=== PATIENT | male | born 1965 | race Caucasian/White ===

== ENCOUNTER 2016-07-15 20:32 | Emergency (ER) | payer OTHER, MEDICARE ==
[2016-07-15] MEDS ORDERED: HYDROMORPHONE HCL INJ/PF 2 MG/ML AMPULE IM ONE ×2 (21:08→22:31)
[2016-07-15] MEDS ORDERED: LORAZEPAM INJ 2 MG/1 ML VIAL IM ONE (21:08)
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
[2016-07-15] MEDS ORDERED: LIDOCAINE 2% URO-JET 5 ML KIT MM ONE (22:11)
[2016-07-15 23:46] VITALS: BP 105/64
== END 2016-07-16 00:54 | disposition home or self-care (01) ==
LOC: ER 20:32
DX: N35.014 Post-traumatic urethral stricture, male, unspecified (principal); R33.9 Retention of urine, unspecified; W40 Explosion of other materials; Z88.2 Allergy status to sulfonamides; Z88.6 Allergy status to analgesic agent; Z87.442 Personal history of urinary calculi; Z98.890 Other specified postprocedural states
CPT/HCPCS: 99283; 96372; 51702; J1170; J2060

== ENCOUNTER 2016-09-18 20:31 | Emergency (ER) | payer OTHER, MEDICARE ==
[2016-09-18 20:37] VITALS: BP 126/71
[2016-09-18] MEDS ORDERED: LIDOCAINE 2% URO-JET 5 ML KIT MM ONE (20:42)
== END 2016-09-18 23:28 | disposition left against medical advice (07) ==
LOC: ER 20:31
DX: Z53.21 Procedure and treatment not carried out due to patient leaving prior to being seen by health care provider (principal)
CPT/HCPCS: J3490

== ENCOUNTER 2017-10-26 20:40 | Emergency (ER) | payer OTHER, MEDICARE ==
--- NOTE | 2017-10-26 22:04 | RADIOLOGY REPORT (SQ) ---
EXAM DESCRIPTION: WRIST RIGHT 3 VIEWS COMPLETED DATE/TIME: 10/26/2017 9:54 pm REASON FOR STUDY: fall COMPARISON: None. NUMBER OF VIEWS: Three views. TECHNIQUE: AP, lateral, and oblique radiographic images acquired of the right wrist. LIMITATIONS: None. FINDINGS: MINERALIZATION: Normal. BONES: Transverse fracture of the distal radius with minimal dorsal angulation. Probable tiny avulsi on fracture from the ulnar styloid. SOFT TISSUES: No soft tissue swelling. No foreign body. OTHER: No other significant finding. IMPRESSION: TRANSVERSE FRACTURE OF THE DISTAL RADIUS WITH MINIMAL ANGULATION AND PROBABLE TINY AVULS ION FRACTURE FROM THE ULNAR STYLOID. TECHNICAL DOCUMENTATION: JOB ID: [id number] [employer]- All Rights Reserved Reading location - IP/workstation name: [email or web address]
--- NOTE | 2017-10-26 22:04 | RADIOLOGY REPORT (SQ) ---
EXAM DESCRIPTION: HIP RIGHT AP/LATERAL COMPLETED DATE/TIME: 10/26/2017 9:54 pm REASON FOR STUDY: fall COMPARISON: None. NUMBER OF VIEWS: Two views. TECHNIQUE: AP pelvis and additional frog-leg view of the right hip. LIMITATIONS: None. FINDINGS: MINERALIZATION: Normal. RIGHT HIP: No fracture or dislocation. No worrisome bone lesions. LEFT HIP: No fracture or dislocation. No worrisome bone lesions. PUBIS AND ISCHIUM: No fracture. PELVIS: No fracture. SACRUM: No fracture or dislocation. No worrisome bone lesions. LOWER LUMBAR SPINE: No fracture or dislocation. No worrisome bone lesions. No significant disc disea se. SOFT TISSUES: No findings. OTHER: No other significant finding. IMPRESSION: NEGATIVE STUDY OF THE RIGHT HIP. NO RADIOGRAPHIC EVIDENCE OF ACUTE INJURY. TECHNICAL DOCUMENTATION: JOB ID: [id number] [employer]- All Rights Reserved Reading location - IP/workstation name: [email or web address]
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
[2017-10-26] MEDS ORDERED: HYDROMORPHONE HCL INJ/PF 2 MG/ML AMPULE IV ONE (23:02)
[2017-10-26 23:36] LABS: ABSOLUTE EOSINOPHILS # (AUTO) 0.1 10^3/uL (0.0-0.6); ABSOLUTE LYMPHOCYTES (AUTO) 1.2 10^3/uL (0.5-4.7); ABSOLUTE MONOCYTES (AUTO) 0.6 10^3/uL (0.1-1.4); ABSOLUTE NEUT (AUTO) 5.5 10^3/uL (1.7-8.2); BASOPHILS % (AUTO) 0.2 % (0-2); EOSINOPHILS % (AUTO) 1.2 % (0-6); HEMATOCRIT 34.3 % (37.9-51.0); HEMOGLOBIN 11.9 g/dL (13.5-17.0); LYMPHOCYTES % (AUTO) 16.1 % (13-45); MEAN CORPUSCULAR HEMOGLOBIN 31.4 pg (27.0-33.4); MEAN CORPUSCULAR HGB CONC 34.6 g/dL (32.0-36.0); MEAN CORPUSCULAR VOLUME 91 fl (80-97); MONOCYTES % (AUTO) 8.5 % (3-13); PLATELET COUNT 195 10^3/uL (150-450); RED BLOOD COUNT 3.78 10^6/uL (4.35-5.55); TOTAL CELLS COUNTED % (AUTO) 100 %; WHITE BLOOD COUNT 7.5 10^3/uL (4.0-10.5)
--- NOTE | 2017-10-26 23:39 | EKG REPORT ---
SEVERITY:- NORMAL ECG - SINUS RHYTHM : Confirmed by: Wendy Tate MD 26-Oct-2017 23:38:18
[2017-10-26 23:48] LABS: ALANINE AMINOTRANSFERASE 32 U/L (21-72); ALBUMIN 3.8 g/dL (3.5-5.0); ALKALINE PHOSPHATASE 63 U/L (38-126); ANION GAP 9 (5-19); ASPARTATE AMINO TRANSFERASE 53 U/L (17-59); BILIRUBIN,DIRECT 0.3 mg/dL (0.0-0.4); BILIRUBIN,TOTAL 0.4 mg/dL (0.2-1.3); BLOOD UREA NITROGEN 29 mg/dL (7-20); CALCIUM 8.8 mg/dL (8.4-10.2); CARBON DIOXIDE 27 mmol/L (22-30); CHLORIDE 101 mmol/L (98-107); GLUCOSE 101 mg/dL (75-110); POTASSIUM 4.5 mmol/L (3.6-5.0); SODIUM 137.4 mmol/L (137-145); TOTAL PROTEIN 6.7 g/dL (6.3-8.2)
[2017-10-27] MEDS ORDERED: ONDANSETRON HCL INJ/PF 4 MG/2 ML SDV IV ONE (00:12)
--- NOTE | 2017-10-27 01:42 | RADIOLOGY REPORT (SQ) ---
EXAM DESCRIPTION: CT HEAD WITHOUT IV CONTRAST COMPLETED DATE/TME: 10/27/2017 00:00 CLINICAL HISTORY: 52 years, Male, fall from 9 ft. hit head and landed on R side COMPARISON: None. TECHNIQUE: 72 Images stored on PACS. All CT scanners at this facility use dose modulation, iterative reconstruction, and/or weight based dosing when appropriate to reduce radiation dose to as low as reasonably achievable (ALARA). [facility]: Dose Right [facility]: CareDose [facility]: Dose Right [facility]: Teradose 4D [facility]: [employer] LIMITATIONS: None. FINDINGS: Ventricles and sulci appear within normal in the patient's age. No midline shift or mass effect. No evidence of acute cranial hemorrhage. There is mucosal thickening in the right frontal sinus, ethmoid air cells, sphenoid and maxillary sinuses. No calvarial fracture is noted. No reformatted imaging was provided. IMPRESSION: No acute intracranial process Inflammatory sinus disease TECHNICAL DOCUMENTATION: Quality ID # 436: Final reports with documentation of one or more dose reduction techniques (e.g., Automated exposure control, adjustment of the mA and/or kV according to patient size, use of iterative reconstruction technique) 2010 [employer]- All Rights Reserved
--- NOTE | 2017-10-27 01:55 | RADIOLOGY REPORT (SQ) ---
EXAM DESCRIPTION: CT CHEST WITH IV CONTRAST COMPLETED DATE/TME: 10/27/2017 00:00 CLINICAL HISTORY: 52 years, Male, fall from 9 ft. hit head and landed on R side COMPARISON: None. TECHNIQUE: Images stored on PACS. All CT scanners at this facility use dose modulation, iterative reconstruction, and/or weight based dosing when appropriate to reduce radiation dose to as low as reasonably achievable (ALARA). [facility]: Dose Right [facility]: CareDose [facility]: Dose Right [facility]: Teradose 4D [facility]: [employer] LIMITATIONS: None. FINDINGS: There is no evidence of pneumothorax. No rib fracture is identified. No evidence of pulmonary infiltrate or contusion. No evidence of pericardial or pleural effusion. The thoracic aorta is normal in caliber without dissection or rupture. No evidence of mediastinal hematoma and no significant thoracic adenopathy. Findings in the abdomen are discussed under separate heading. Multilevel degenerative change in the thoracic spine. Sternum and manubrium appear intact. Postsurgical change in the right humerus. IMPRESSION: No acute thoracic injury noted Findings in the abdomen and pelvis are dictated under a separate dictation heading TECHNICAL DOCUMENTATION: Quality ID # 436: Final reports with documentation of one or more dose reduction techniques (e.g., Automated exposure control, adjustment of the mA and/or kV according to patient size, use of iterative reconstruction technique) 2010 [employer]- All Rights Reserved
--- NOTE | 2017-10-27 01:55 | RADIOLOGY REPORT (SQ) ---
EXAM DESCRIPTION: CT ABDOMEN PELVIS WITH IV CONTRAST COMPLETED DATE/TME: 10/27/2017 00:00 CLINICAL HISTORY: 52 years, Male, fall off scaffolding, pain in right flank and abd COMPARISON: None. TECHNIQUE: 713 Images stored on PACS. All CT scanners at this facility use dose modulation, iterative reconstruction, and/or weight based dosing when appropriate to reduce radiation dose to as low as reasonably achievable (ALARA). [facility]: Dose Right [facility]: CareDose [facility]: Dose Right [facility]: Teradose 4D [facility]: [employer] LIMITATIONS: None. FINDINGS: The liver appears normal in size. There is a 1.3 cm hepatic cyst. No perihepatic fluid or hemorrhage is noted. Spleen and adrenal glands are unremarkable. Streak artifact from the patient's arm over the upper abdomen. Unremarkable gallbladder. Aorta is normal in caliber without dissection or rupture. No evidence of acute fracture in the lumbar spine. There is no evidence of subcutaneous hematoma. Pelvis appears intact. No evidence of hemoperitoneum. Unremarkable kidneys without surrounding hemorrhage or hydronephrosis. 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 No evidence of volume loss. IMPRESSION: No evidence of abdominal or pelvic visceral injury No acute fracture noted AVN involving the femoral heads bilaterally Findings in the chest are dictated under a separate dictation heading TECHNICAL DOCUMENTATION: Quality ID # 436: Final reports with documentation of one or more dose reduction techniques (e.g., Automated exposure control, adjustment of the mA and/or kV according to patient size, use of iterative reconstruction technique) 2010 [employer]- All Rights Reserved
--- NOTE | 2017-10-27 02:01 | RADIOLOGY REPORT (SQ) ---
EXAM DESCRIPTION: CT CERVICAL SPINE WITHOUT IV CONTRAST COMPLETED DATE/TME: 10/27/2017 00:00 CLINICAL HISTORY: 52 years, Male, fall from 9 ft. hit head and landed on R side COMPARISON: None. TECHNIQUE: 237 Images stored on PACS. All CT scanners at this facility use dose modulation, iterative reconstruction, and/or weight based dosing when appropriate to reduce radiation dose to as low as reasonably achievable (ALARA). [facility]: Dose Right [facility]: CareDose [facility]: Dose Right [facility]: Teradose 4D [facility]: [employer] LIMITATIONS: None. FINDINGS: There is normal cervical alignment and lordosis. Mild chronic appearing wedging at C6 and C7. Generalized bulging of the disc at C3-C4 with mild narrowing of the central canal and neural foraminal stenosis right greater than left. Facet arthropathy on the right at C4-5 C5-6 with mild narrowing of the neural foramen. Right-sided facet arthropathy at C6-7 with bilateral neural foraminal narrowing and mild central canal stenosis. C7-T1 there is marked facet arthropathy on the right with severe right neural foraminal stenosis. Small blebs are present in the lung apices. No pneumothorax. IMPRESSION: Multilevel degenerative change as described without evidence to suggest acute fracture TECHNICAL DOCUMENTATION: Quality ID # 436: Final reports with documentation of one or more dose reduction techniques (e.g., Automated exposure control, adjustment of the mA and/or kV according to patient size, use of iterative reconstruction technique) 2010 [employer]- All Rights Reserved
[2017-10-27 05:46] VITALS: BP 115/80
== END 2017-10-27 06:05 | disposition home or self-care (01) ==
LOC: ER 20:40
DX: S52.501A Unspecified fracture of the lower end of right radius, initial encounter for closed fracture (principal); S52.614A Nondisplaced fracture of right ulna styloid process, initial encounter for closed fracture; S09.90XA Unspecified injury of head, initial encounter; W17.89XA Other fall from one level to another, initial encounter; Y93.H3 Activity, building and construction; Z88.6 Allergy status to analgesic agent; Z88.2 Allergy status to sulfonamides
CPT/HCPCS: 93005; 99284; 96374; 96375; 36415; 85025; 80053; 73502; 73110; 70450; 71260; 72125; 74177; 93010; 29125; L0120; J1170; J2405; L0172

== ENCOUNTER 2017-10-27 11:50 | Emergency (ER) | payer MEDICARE, OTHER ==
[2017-10-27 12:18] VITALS: BP 137/95
--- NOTE | 2017-10-27 12:19 | ER Document Report ---
ED Medical Screen (RME) - General Chief Complaint: Medication Refill Stated Complaint: HAND INJURY Time Seen by Provider: 10/27/17 12:18 Mode of Arrival: Ambulatory Information source: Patient TRAVEL OUTSIDE OF THE [place] IN LAST 30 DAYS: No - HPI Patient complains to provider of: R arm fracture Onset: Just prior to arrival - pt seen here last pm for arm fracture -- was not given Rx for pain meds. Requesting them now - Related Data Allergies/Adverse Reactions: acetaminophen [From Tylenol] Allergy (Verified 10/26/17 20:42) Sulfa (Sulfonamide Antibiotics) Allergy (Verified 10/26/17 20:42) Past Medical History Renal/ Medical History: Reports: Hx Kidney Stones. Denies: Hx Peritoneal Dialysis Psychiatric Medical History: Reports: Hx Depression Past Surgical History: Reports: Hx Genitourinary Surgery - Numerous reconstructive surgeries apparently, Hx Orthopedic Surgery - Back surgery - Immunizations Hx Diphtheria, Pertussis, Tetanus Vaccination: Yes Physical Exam - Vital signs Vitals: Pulse 96 10/27/17 12:15 Course - Vital Signs Vital signs: Temp Pulse Resp BP Pulse Ox 96 10/27/17 12:15
== END 2017-10-27 12:26 | disposition home or self-care (01) ==
LOC: ER 11:50
DX: S42.301D Unspecified fracture of shaft of humerus, right arm, subsequent encounter for fracture with routine healing (principal); X58.XXXD Exposure to other specified factors, subsequent encounter; Z88.6 Allergy status to analgesic agent; Z88.2 Allergy status to sulfonamides
CPT/HCPCS: 99283

== ENCOUNTER 2017-12-11 12:58 | Emergency (ER) | payer MEDICARE ==
[2017-12-11 13:07] VITALS: BP 103/73
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
--- NOTE | 2017-12-11 13:55 | RADIOLOGY REPORT (SQ) ---
EXAM DESCRIPTION: FOREARM RIGHT COMPLETED DATE/TIME: 12/11/2017 1:26 pm REASON FOR STUDY: fall broken are 3 weeks ago, fell again yesterday re-injury with pain COMPARISON: None. NUMBER OF VIEWS: Two views. TECHNIQUE: Two radiographic images acquired of the right forearm, including elbow and wrist in at le ast one projection. LIMITATIONS: Fiberglass cast FINDINGS: MINERALIZATION: Normal. BONES: Subacute comminuted distal right radius metaphysis fracture with bony callus. No angulation o r displacement. SOFT TISSUES: No obvious swelling or foreign body. OTHER: No other significant finding. IMPRESSION: Subacute healing comminuted distal right radius metaphysis fracture with bony callus. N o angulation or displacement. TECHNICAL DOCUMENTATION: JOB ID: [id number] [employer] All Rights Reserved Reading location - IP/workstation name: [email or web address]
== END 2017-12-11 14:55 | disposition home or self-care (01) ==
LOC: ER 12:58
DX: S52.91XD Unspecified fracture of right forearm, subsequent encounter for closed fracture with routine healing (principal); X37.0XXD Hurricane, subsequent encounter
CPT/HCPCS: 99283

== ENCOUNTER 2019-04-10 14:33 | Emergency (ER) | payer OTHER ==
--- NOTE | 2019-04-10 14:56 | ER Document Report ---
ED Medical Screen (RME) - General Chief Complaint: Problem with Urinary Catheter Stated Complaint: CATHETER PROBLEM Time Seen by Provider: 04/10/19 14:50 Primary Care Provider: HAYDER LITTLE MD [Primary Care Provider] - Follow up as needed TRAVEL OUTSIDE OF THE U.[place]. IN LAST 30 DAYS: No - HPI Notes: 04/10/19 14:54 Patient is a 54-year-old male who presents complaining of being unable to self cath at home due to inflammation or buildup of scar tissue. He is unable to get his 14 Ivorian catheter through. Patient states that this has happened before and needed to use a 16 Ivorian with a coud tip. Patient is requesting that a Turner catheter be placed very specifically which she will explain to whoever is doing it and left in place. He does have a specialist that he sees. He otherwise has not been able to self cath since yesterday evening. No fever. He does feel distended. I have treated and performed a rapid initial assessment of this patient. A comprehensive ED assessment and evaluation of the patient, analysis of test results and completion of medical decision making process will be conducted by additional ED providers. PHYSICAL EXAMINATION: GENERAL: Pt does seem uncomfortable, but in no acute distress. A&Ox4. Answers questions appropriately. - Related Data Allergies/Adverse Reactions: acetaminophen [From Tylenol] Allergy (Verified 04/10/19 14:45) Sulfa (Sulfonamide Antibiotics) Allergy (Verified 04/10/19 14:45) Past Medical History Renal/ Medical History: Reports: Hx Kidney Stones. Denies: Hx Peritoneal Dialysis Psychiatric Medical History: Reports: Hx Depression Past Surgical History: Reports: Hx Genitourinary Surgery - Numerous reconstructive surgeries apparently, Hx Orthopedic Surgery - Back surgery - Immunizations Hx Diphtheria, Pertussis, Tetanus Vaccination: Yes Physical Exam - Vital signs Vitals: Temp Pulse Resp BP Pulse Ox 98.1 F 89 20 117/96 H 98 04/10/19 14:38 04/10/19 14:38 04/10/19 14:38 04/10/19 14:38 04/10/19 14:38 Course - Vital Signs Vital signs: Temp Pulse Resp BP Pulse Ox 98.1 F 89 20 117/96 H 98 04/10/19 14:38 04/10/19 14:38 04/10/19 14:38 04/10/19 14:38 04/10/19 14:38 Doctor's Discharge - Discharge Referrals: HAYDER LITTLE MD [Primary Care Provider] - Follow up as needed
[2019-04-10] MEDS ORDERED: LORAZEPAM 1 MG TABLET PO ONE (15:25)
[2019-04-10] MEDS ORDERED: LIDOCAINE 2% URO-JET 5 ML KIT MM ONE (15:25)
[2019-04-10] MEDS ORDERED: HYDROMORPHONE HCL INJ/PF 2 MG/ML AMPULE IM ONE (15:46)
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
[2019-04-10 16:43] VITALS: BP 125/80
== END 2019-04-10 16:42 | disposition home or self-care (01) ==
LOC: ER 14:33
DX: R33.9 Retention of urine, unspecified (principal); T14.90XS Injury, unspecified, sequela; X58.XXXS Exposure to other specified factors, sequela; R10.9 Unspecified abdominal pain; F17.200 Nicotine dependence, unspecified, uncomplicated; Z88.8 Allergy status to other drugs, medicaments and biological substances; Z88.2 Allergy status to sulfonamides
CPT/HCPCS: 99283; 51702; 96374; J1170; J3490

== ENCOUNTER 2019-04-13 14:49 | Emergency (ER) | payer OTHER ==
[2019-04-13 14:59] VITALS: BP 118/73
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
[2019-04-13] MEDS ORDERED: HYDROMORPHONE HCL INJ/PF 2 MG/ML AMPULE IV ONE (15:55)
[2019-04-13] MEDS ORDERED: LORAZEPAM INJ 2 MG/1 ML VIAL IV ONE (16:30)
[2019-04-13] MEDS ORDERED: LIDOCAINE 2% URO-JET 5 ML KIT MM ONE (16:30)
[2019-04-13 16:31] LABS: ABSOLUTE BASOPHILS # (AUTO) 0.1 10^3/uL (0.0-0.2); ABSOLUTE EOSINOPHILS # (AUTO) 0.3 10^3/uL (0.0-0.6); ABSOLUTE LYMPHOCYTES (AUTO) 1.7 10^3/uL (0.5-4.7); ABSOLUTE MONOCYTES (AUTO) 0.4 10^3/uL (0.1-1.4); ABSOLUTE NEUT (AUTO) 3.5 10^3/uL (1.7-8.2); EOSINOPHILS % (AUTO) 4.5 % (0-6); HEMATOCRIT 42.4 % (37.9-51.0); HEMOGLOBIN 14.3 g/dL (13.5-17.0); LYMPHOCYTES % (AUTO) 28.5 % (13-45); MEAN CORPUSCULAR HEMOGLOBIN 30.8 pg (27.0-33.4); MEAN CORPUSCULAR HGB CONC 33.8 g/dL (32.0-36.0); MEAN CORPUSCULAR VOLUME 91 fl (80-97); MONOCYTES % (AUTO) 6.3 % (3-13); PLATELET COUNT 257 10^3/uL (150-450); RED BLOOD COUNT 4.65 10^6/uL (4.35-5.55); RED CELL DISTRIBUTION WIDTH 13.3 % (11.5-14.0); SEGMENTED NEUTROPHILS % (AUTO) 59.7 % (42-78); TOTAL CELLS COUNTED % (AUTO) 100 %; WHITE BLOOD COUNT 5.8 10^3/uL (4.0-10.5)
[2019-04-13 16:55] LABS: ANION GAP 5 (5-19); BLOOD UREA NITROGEN 14 mg/dL (7-20); CALCIUM 9.5 mg/dL (8.4-10.2); CARBON DIOXIDE 33 mmol/L (22-30); CHLORIDE 104 mmol/L (98-107); GLUCOSE 86 mg/dL (75-110); POTASSIUM 5.1 mmol/L (3.6-5.0)
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
[2019-04-13 17:21] LABS: APPEARANCE,URINE SLIGHTLY-CLOUDY; BILIRUBIN,URINE NEGATIVE (NEGATIVE); COLOR,URINE YELLOW; GLUCOSE, URINE NEGATIVE (NEGATIVE); KETONES,URINE TRACE mg/dL (NEGATIVE); PROTEIN,URINE 30 mg/dL (NEGATIVE); UROBILINOGEN,URINE NEGATIVE mg/dL (<2.0)
== END 2019-04-13 17:39 | disposition home or self-care (01) ==
LOC: ER 14:49
DX: N32.89 Other specified disorders of bladder (principal); T83.9XXA Unspecified complication of genitourinary prosthetic device, implant and graft, initial encounter; F17.200 Nicotine dependence, unspecified, uncomplicated; Z88.6 Allergy status to analgesic agent; Z88.2 Allergy status to sulfonamides
CPT/HCPCS: 99283; 51702; 96374; 96375; 36415; 87086; 85025; 87088; 80048; 81001; J1170; J2060; J3490